=== PATIENT | male | born 1950 | race Caucasian/White ===

== ENCOUNTER → 2016-07-02 | Outpatient (CLI) | payer MEDICARE ==
[~2016-07-02] MED LIST: ASPI325T4 PO; DISU250T2 PO; DOXE50CA PO; ESCI10TA10 PO; FAMO-79 PO; GABA300C10 PO; GLUC1CAP37 PO; MULT-658 PO; OMEP-110 PO; PROP10TA PO
== END | disposition home or self-care (01) ==
LOC: CFH 08:45
PROVIDERS: ATTEND Nurse Practitioner Family
DX: B18.2 Chronic viral hepatitis C (principal); K76.0 Fatty (change of) liver, not elsewhere classified; R16.1 Splenomegaly, not elsewhere classified
CPT/HCPCS: 76700